=== PATIENT | female | born 1930 | race Caucasian/White ===

== ENCOUNTER 2016-10-24 12:57 | Inpatient (IN) | payer OTHER ==
[~2016-10-24] VITALS: Ht 162.6 cm; Wt 50.1 kg
--- NOTE | 2016-10-24 14:12 | DIAGNOSTIC IMAGING REPORT ---
PROCEDURE: XR CHEST 2 VIEW INDICATION: SHORTNESS OF BREATH, initial encounter TECHNIQUE: PA and lateral view. COMPARISON: None. FINDINGS: Small retrocardiac infiltrate. Cardiovascular structures are normal. Bony thorax is unremarkable. IMPRESSION: 1. Small retrocardiac infiltrate
--- NOTE | 2016-10-24 16:14 | ED ORDER SUMMARY ---
..... Patient: JUAN DANIEL ULLOA OrderSheet [facility] VisitID: [id number] [place] [address] 86y, F Registration Date/Time: 10/24/2016 ORDER SHEET Weight: 48.9 kg (estimated) Allergies: No Known Drug Allergy GENERAL ORDERS: Chest 2V Urgent (13:41 10/24/2016 DDean R.N. per protocol) (Ack 13:47 LMuller) (14:08 DDean R.N.) - (vital signs?) (13:49 10/24/2016 Maninder ESPARZA) (13:58 LMuller) CBC w Diff Urgent (14:26 10/24/2016 Maninder ESPARZA) (Ack 14:28 LMuller) (15:01 DDean R.N.) CMP Urgent (14:26 10/24/2016 Maninder ESPARZA) (Ack 14:28 LMuller) (15:01 DDean R.N.) UA-Culture if indicated Urgent (14:26 10/24/2016 Maninder ESPARZA) (Ack 14:28 LMuller) (Cancelled: Unable to [id number] DDean R.N.) BNP Urgent (14:26 10/24/2016 Maninder ESPARZA) (Ack 14:28 LMuller) (15:01 DDean R.N.) EKG - ER Stat (14:27 10/24/2016 Maninder ESPARZA) (Ack 14:28 LMuller) (15:40 DDean R.N.) Lactate, Serum Urgent (14:27 10/24/2016 Maninder ESPARZA) (Ack 14:28 LMuller) (15:40 DDean R.N.) PCT (Procalcitonin) Urgent (14:27 10/24/2016 Maninder ESPARZA) (Ack 14:28 LMuller) (15:01 DDean R.N.) Blood Culture (No) (N/A) Urgent (14:31 10/24/2016 Maninder ESPARZA) (Ack 14:34 LMuller) (15:40 DDean R.N.) Rapid Influenza Screen (Nasal Pharyngeal) (swab) Urgent (14:31 10/24/2016 Maninder ESPARZA) (Ack 14:34 LMuller) (15:49 DDean R.N.) MEDICATION ORDERS: Albuterol Neb Tx 5 mg (HHN) (14:29 10/24/2016 Maninder ESPARZA) (14:45 JZiglar) - (TAMIFLU 75 MG) (17:05 10/24/2016 Maninder ESPARZA) (17:26 DDean R.N.) IV FLUIDS: IV Saline Lock (14:26 10/24/2016 Maninder ESPARZA) (Ack 14:27 DDean R.N.) (15:02 DDean R.N.) Ceftriaxone IV 2 gm/50mL (NOW) (16:29 10/24/2016 Maninder ESPARZA) (Ack 16:34 SSanderson R.N.) (16:39 SSanderson R.N.) ORDER SHEET NOTES: [Electronically signed by Deb Bustillo R.N. (18:58 10/24/2016)] [Electronically signed by Kris Grady MD (22:54 10/24/2016)] [Electronically locked/signed by Deb Bustillo R.N. (18:58 10/24/2016)]
--- NOTE | 2016-10-24 16:14 | ED ORDER SUMMARY ---
..... Patient: JUAN DANIEL ULLOA OrderSheet [facility] VisitID: [id number] [place] [address] 86y, F Registration Date/Time: 10/24/2016 ORDER SHEET Weight: 48.9 kg (estimated) Allergies: No Known Drug Allergy GENERAL ORDERS: Chest 2V Urgent (13:41 10/24/2016 DDean R.N. per protocol) (Ack 13:47 LMuller) (14:08 DDean R.N.) - (vital signs?) (13:49 10/24/2016 Maninder ESPARZA) (13:58 LMuller) CBC w Diff Urgent (14:26 10/24/2016 Maninder ESPARZA) (Ack 14:28 LMuller) (15:01 DDean R.N.) CMP Urgent (14:26 10/24/2016 Maninder ESPARZA) (Ack 14:28 LMuller) (15:01 DDean R.N.) UA-Culture if indicated Urgent (14:26 10/24/2016 Maninder ESPARZA) (Ack 14:28 LMuller) (Cancelled: Unable to [id number] DDean R.N.) BNP Urgent (14:26 10/24/2016 Maninder ESPARZA) (Ack 14:28 LMuller) (15:01 DDean R.N.) EKG - ER Stat (14:27 10/24/2016 Maninder ESPARZA) (Ack 14:28 LMuller) (15:40 DDean R.N.) Lactate, Serum Urgent (14:27 10/24/2016 Maninder ESPARZA) (Ack 14:28 LMuller) (15:40 DDean R.N.) PCT (Procalcitonin) Urgent (14:27 10/24/2016 Maninder ESPARZA) (Ack 14:28 LMuller) (15:01 DDean R.N.) Blood Culture (No) (N/A) Urgent (14:31 10/24/2016 Maninder ESPARZA) (Ack 14:34 LMuller) (15:40 DDean R.N.) Rapid Influenza Screen (Nasal Pharyngeal) (swab) Urgent (14:31 10/24/2016 Maninder ESPARZA) (Ack 14:34 LMuller) (15:49 DDean R.N.) MEDICATION ORDERS: Albuterol Neb Tx 5 mg (HHN) (14:29 10/24/2016 Maninder ESPARZA) (14:45 JZiglar) - (TAMIFLU 75 MG) (17:05 10/24/2016 Maninder ESPARZA) (17:26 DDean R.N.) IV FLUIDS: IV Saline Lock (14:26 10/24/2016 Maninder ESPARZA) (Ack 14:27 DDean R.N.) (15:02 DDean R.N.) Ceftriaxone IV 2 gm/50mL (NOW) (16:29 10/24/2016 Maninder ESPARZA) (Ack 16:34 SSanderson R.N.) (16:39 SSanderson R.N.) ORDER SHEET NOTES: [Electronically signed by Deb Bustillo R.N. (18:58 10/24/2016)] [Electronically signed by Kris Grady MD (22:54 10/24/2016)] [Electronically locked/signed by Deb Bustillo R.N. (18:58 10/24/2016)]
--- NOTE | 2016-10-24 16:14 | ED CLINICAL REPORT ---
Clinical Report - Physicians/Mid Levels [facility] [address] [place] [address] 10/24/2016 13:05 Patient: JUAN DANIEL ULLOA Time Seen: 13:49. Arrived- By private vehicle. Historian- patient. HISTORY OF PRESENT ILLNESS Chief Complaint: COUGH AND FEVER. This started several days ago; Pt had initial cough which has now worsened and is associated with fever. and is still present and worsening. It was gradual in onset. The dyspnea is described as moderate and is worsened by walking. The patient has had sputum production, a cough, fever, wheezing and chills. She has had dyspnea on exertion. No chest pain or discomfort or calf pain. Similar symptoms previously: None. Recent medical care: The patient was seen recently in the office. REVIEW OF SYSTEMS The patient has had fever, fatigue, a cough and difficulty breathing. No photophobia, ear pain, sore throat, chest pain or pedal edema. No abdominal pain, diarrhea, nausea, vomiting or back pain. No joint pain, skin rash or difficulty with urination. PAST HISTORY Dr Galarza. Ops: Sha, Jerry Hosp: Above Illness: Dementia. SOCIAL HISTORY Never smoker. ADDITIONAL NOTES The nursing notes have been reviewed. PHYSICAL EXAM Vital Signs: 10/24/2016 17:33 BP: 120/52. HR: 84. RR: 20. O2 saturation: 96%. Pain level now: 0. 10/24/2016 17:15 BP: 122/46. HR: 86. RR: 20. O2 saturation: 95%. Pain level now: 0. 10/24/2016 16:39 BP: 104/51. HR: 79. RR: 20. O2 saturation: 94%. 10/24/2016 15:48 BP: 108/43. HR: 73. RR: 18. O2 saturation: 95%. Pain level now: 0. 10/24/2016 13:25 BP: 115/58. HR: 74. RR: 20. O2 saturation: 91%. Temp: 99.9 F. Pain level now: 0. Appearance: Alert. Patient in mild distress. Eyes: Eyes normal inspection. ENT: Pharynx normal. Neck: No jugular venous distention. CVS: Heart sounds normal. Respiratory: Wheezing present. Rhonchi present. Rales present. Abdomen: Soft and nontender. Skin: Skin warm. Normal skin color. No rash. Extremities: Extremities exhibit normal ROM. No lower extremity edema. Neuro: No alteration in mental status. No motor deficit. LABS, X-RAYS, AND EKG Chest X-ray: (PROCEDURE: XR CHEST 2 VIEW INDICATION: SHORTNESS OF BREATH, initial encounter TECHNIQUE: PA and lateral view. COMPARISON: None. FINDINGS: Small retrocardiac infiltrate. Cardiovascular structures are normal. Bony thorax is unremarkable. IMPRESSION: 1. Small retrocardiac infiltrate Electronically Final signed by:Damien Ramirez MD 10/24/2016 2:12:13 PM). Laboratory Tests: CBC w Diff: (NATALIE: 10/24/2016 14:35) ( [facility] 10/24/2016 15:10) Final results Test Result Flag Units (Reference) WHITE BLOOD COUNT 14.1 H K/uL (4.5-11.5) RED BLOOD COUNT 4.61 M/uL (4.00-5.20) HEMOGLOBIN 12.8 gm/dL (12.0-16.0) HEMATOCRIT 40.4 % (36.0-46.0) MEAN CELL VOLUME 88 fL (80-100) MEAN CORPUSCULAR HGB 28 pg (26-34) MEAN CORPUSCULAR HGB CONC 32 g/dL (31-37) RED CELL DISTRIBUTION WIDTH 14.0 % (11.6-14.8) PLATELET COUNT 205 K/uL (150-400) NEUTROPHIL % 86.0 H % (50-75) LYMPH % 5.5 L % (25-40) MONO % 8.4 % (3-14) EOSINOPHIL % 0 % (0-4) BASOPHIL % 0.1 % (0-2) Lactate, Serum: (NATALIE: 10/24/2016 15:10) ( [facility] 10/24/2016 16:25) Final results Test Result Flag Units (Reference) LACTIC ACID 1.7 mmol/L (0.4-2.0) [id number]: (NATALIE: 10/24/2016 14:35) ( MsgRcvd 10/24/2016 15:35) Final results Test Result Flag Units (Reference) PROCALCITONIN <0.5 ng/mL (0-0.5) PCT Concentration: Interpretation : Risk/option for action PCT <=0.5 ng/mL : Systemic : Low risk forinfection(sepsis): progression to severeis not likely. : systemic infection.Local bacterial : CAUTION-PCT levelsinfection is : below 0.5 ng/mL do notpossible. : exclude an infection,because localizedinfections (withoutsystemic signs) may beassociated with suchlow levels. If PCT ismeasured very earlyafter a bacterialchallenge (usually <6hours), these valuesmay still be low. Inthis case PCT shouldbe re-assessed 6-24hours later. PCT >0.5 and : Systemic infection: Moderate risk for<= 2 ng/mL : (sepsis) is : progression to severepossible, but : systemic infection.other conditions : The patient should beare known to : closely monitoredelevate PCT. : both clinically andby re-assessing PCTwithin 6-24 hours. PCT > 2 ng/mL : Systemic infection: High risk for(sepsis) is likely: progression to severeunless other : systemic infection.causes are known. : PCT >= 10 ng/mL : Important systemic: High likelihood ofinflammatory : severe sepsis orresponse, almost : septic shock.exclusively due to:severe bacterial :sepsis or septic :shock. : BNP: (NATALIE: 10/24/2016 14:35) ( [facility] 10/24/2016 15:34) Final results Test Result Flag Units (Reference) B-TYPE NATRIURETIC PEPTIDE 706 H pg/ml (5-100) CMP: (NATALIE: 10/24/2016 14:35) ( [facility] 10/24/2016 15:16) Final results Test Result Flag Units (Reference) GLUCOSE 119 H mg/dL (70-110) BUN 20 H mg/dL (7-18) CREATININE 0.9 mg/dL (0.6-1.3) Estimated GFR >60 mL/min Estimated GFR- >60 mL/min Note: Persistent reduction over 3 months in eGFR<60 mL/min/1.73 m2 defines CKD. Patients with eGFR values>=60 mL/min/1.73 m2 may also have CKD if evidence ofpersistent proteinuria. Additional information may be foundat www.kidney.org. SODIUM 141 mmol/L (136-145) POTASSIUM 4.3 mmol/L (3.5-5.1) CHLORIDE 104 mmol/L (98-107) CARBON DIOXIDE 29 mmol/L (21-32) CALCIUM 8.6 mg/dL (8.5-10.1) TOTAL PROTEIN 6.9 g/dL (6.4-8.2) ALBUMIN 3.0 L g/dL (3.3-5.0) BILIRUBIN, TOTAL 0.4 mg/dL (0.0-1.0) ALKALINE PHOSPHATASE 58 U/L (46-116) AST (SGOT) 35 U/L (15-37) ALT (SGPT) 28 U/L (12-78) Rapid Influenza Screen: (NATALIE: 10/24/2016 15:40) ( MsgRcvd 10/24/2016 16:19) Final results SPECIMEN DESCRIPTION: SWAB Test Result Flag Units (Reference) RAPID INFLUENZA SCREEN CALLED TO: Ellyn GUTIERREZ -- DATE: 10/24/16 INFLUENZA A: POSITIVE SCREEN FOR INFLUENZA A INFLUENZA B: NEGATIVE SCREEN FOR INFLUENZA B RAPID INFLUENZA "A" POSITIVE. . PROGRESS AND PROCEDURES Course of Care: Discussed with Dr Hdez who agrees to admit the patient to the ACU Pt treated with albuterol solumedrol ceftriaxone Added Tamiflu when influenza test is positive. Pt is recommended for admit for fever, bronchospasm, pneumonia on CXR. Additionally pt has some element of CHF and has influenza. Disposition orders written. CLINICAL IMPRESSION PNEUMONIA CHF BRONCHOSPASM INFLUENZA. (Electronically signed by Kris Grady MD 10/24/2016 22:54)
--- NOTE | 2016-10-24 16:14 | ED NURSING NOTES ---
Clinical Report - Nurses [facility] [address] [place] [address] 10/24/2016 13:05 Patient: JUAN DANIEL ULLOA TRIAGE Triage time 13:25. --13:29 Marvin Mandel R.N. Triage time 13:25. Acuity: LEVEL 3. Chief Complaint: SHORTNESS OF BREATH, DIFFICULTY BREATHING and WHEEZING. --13:49 Deb Bustillo R.N. 13:25 10/24/16. BP: 115/58. HR: 74. RR: 20. O2 saturation: 91% on room air. Temp: 99.9 F. Pain level now: 0/10. Additional comments: 93 ON 2 l nc . --13:49 Deb Bustillo R.N. Weight: 48.9 kg estimated. Height/Length: 63 inches Estimated. BMI: 19.1. --13:47 Deb Bustillo R.N. Medications Amenda 1 tab BID . --13:46 Deb Bustillo R.N. Aricept Oral, at bedtime. Centrum Silver Ultra Womens Oral, daily. --13:46 Deb Bustillo R.N. Claritin Oral 10 mg, PRN, last dose last night . --13:47 Deb Bustillo R.N. Allergies No Known Drug Allergy. --13:47 Deb Bustillo R.N. History Historian: spouse and patient. Primary physician (geovanni). ( c/o shortness of breath starting wednesday). --13:29 Marvin Mandel R.N. Arrived by private vehicle. Historian: patient. Accompanied by spouse. Primary physician (geovanni). Onset. ( night/ am--getting progressively worse, has appt on with Geovanni, but didn't want to wait til then). She has had fever, a cough and wheezing. SOCIAL HX: Never smoker. Alcohol use; consumes one glass of wine weekly. No drug use. --13:49 Deb Bustillo R.N. PROBLEMS: Senile dementia. --13:44 Deb Bustillo R.N. ADDITIONAL SURGERIES: Appendectomy. Hysterectomy. --13:44 Deb Bustillo R.N. Interventions ID band on patient. To treatment room. --13:49 Deb Bustillo R.N. PHYSICAL ASSESSMENT 13:25. Ambulatory to room. Patient gowned. GENERAL / NEURO / PSYCH: Alert. Appears in no acute distress. The patient is disoriented to time. RESPIRATORY: Mild respiratory distress. The patient can speak in full sentences. Cough. Wheezing present. CVS: Capillary refill less than 2 seconds. GI / : Abdomen soft. SKIN: Skin is warm and dry. --13:50 Deb Bustillo R.N. NURSING PROGRESS NOTES 13:25. Oxygen administered by nasal cannula at 2 liters. Patient gowned. Head of bed elevated. Reassurance given. Patient identifiers checked. Call light placed in reach. Side rails up. Bed placed in lowest position. Patient ready for evaluation- chart flagged. ( assisted pt in getting undressed and into gown). --13:51 Deb Bustillo R.N. 13:48. Patient transported to radiology by stretcher with tech. --13:52 Deb Bustillo R.N. 13:58. Patient returned from radiology by stretcher with tech. --14:07 Deb Bustillo R.N. 14:25 10/24/2016 Site #1 started via IV in the right forearm with an 20g angiocath, with aseptic technique and good blood return; one attempt. Blood drawn: rainbow set and cultures x1. Labeled in the presence of the patient and sent to the lab. Saline lock flushed with 10 mL saline. --15:02 Deb Bustillo R.N. 14:40 10/24/2016 Albuterol Neb TX Nebulizer 2 unit dose given. Given by the respiratory therapist. Allergies verified and confirmed 5 rights. Ap Panda --14:45 Ap Panda 15:00. Patient ID band checked for patient name and birthdate: patient confirmed. Flu swab obtained by RN via nasal pharyngeal swab. Labeled in the presence of the patient and sent to lab. --15:49 Deb Bustillo R.N. 15:48 10/24/16. BP: 108/43. HR: 73. RR: 18. O2 saturation: 95% on nasal cannula at 2 liters/minute. Temp: deferred. Pain level now: 0/10. --15:49 Deb Bustillo R.N. late entry -14:25 RT in CCU, EDRN started Albuterol tx for pt. --15:50 Deb Bustillo R.N. 16:39 10/24/2016 Started 2 gm of Ceftriaxone IVPB in bag #1 50 mL; at 150 mL/hr over 20 minute(s) via site #1; Allergies verified and confirmed 5 rights. IV patency established. IV site checked: no pain, redness, or swelling. IV flushed thoroughly pre- and post-medication administration. --16:39 Christine Cantu R.N. 16:39 10/24/16. BP: 104/51. HR: 79. RR: 20. O2 saturation: 94% on nasal cannula at 3 liters/minute. --16:40 Christine Cantu R.N. 17:05 10/24/2016 Ceftriaxone IVPB Discontinued: bag #1 infused upon discharge. Total amount infused: 50 mL. IV patency established. IV site checked: no pain, redness, or swelling. IV flushed thoroughly. --17:19 Deb Bustillo R.N. 17:20 10/24/2016 Tamiflu * PO 75mg --17:26 Deb Bustillo R.N. 17:15 10/24/16. BP: 122/46. HR: 86. RR: 20. O2 saturation: 95%. Temp: deferred. Pain level now: 0/10. Additional comments: pt does c/o sore throat, given po meds and juice. jc well . --17:27 Deb Bustillo R.N. 17:28 10/24/2016 Site #[address] upon admission; patent. Good blood return present. Flushed with 10 mL saline. --17:28 Deb Bustillo R.N. 17:28 10/24/2016 IV Saline Lock Drip IV Continued: upon admission at the rate of 0 mL/hr. 0 mL remaining bag #1. IV patency established. IV site checked: no pain, redness, or swelling. IV flushed thoroughly. --17:28 Deb Bustillo R.N. DISPOSITION / DISCHARGE Condition at departure: improved and stable. Admitted to Acute Care. Transported via stretcher by tech with IV and O2. Report was given. (RUFINA Camacho AC staff nurse). WES COMA SCORE: Wes Coma Scale: 14- eyes open spontaneously (4); best verbal response- disoriented (4); best motor response- obeys commands (6). --17:34 Deb Bustillo R.N. 17:33 10/24/16. BP: 120/52. HR: 84. RR: 20. O2 saturation: 96% on nasal cannula at 2 liters/minute. Temp: deferred. Pain level now: 0/10. --17:34 Deb Bustillo R.N. Departure time: 1750. --18:56 Deb Bustillo R.N. Locked/Released at 10/24/2016 18:58 by Deb Bustillo R.N.
[2016-10-24 18:37] VITALS: BP 137/63
[2016-10-24] MEDS ORDERED: NAMENDA10 MG PO (18:52)
[2016-10-24] MEDS ORDERED: ARICEPT10 MG PO (18:53)
--- NOTE | 2016-10-24 22:38 | HISTORY AND PHYSICAL ---
ADMITTED: 10/24/2016 CHIEF COMPLAINT: 1. Cough and shortness of breath HISTORY OF PRESENT ILLNESS: An 86-year-old female with history of dementia/ memory loss presents with increasing illness for several days, approximately 5 days' history was given in from the patient's spouse of cough and wheezing. The spouse is not present at the time of my interview and the patient denies all symptoms; however, she coughs during the history while denying cough. MEDICAL/SURGICAL HISTORY: Past medical history remarkable for memory loss, verruca vulgaris, cataracts. Surgeries: Appendectomy and hysterectomy. MEDICATIONS: 1. Ipratropium 2 sprays per nostril 3 times a day. 2. Calcium carbonate 1 tablet daily. 3. Multivitamin once daily. 4. Aricept 10 mg 2 p.o. daily. 5. Namenda 10 mg 1 p.o. b.i.d. ALLERGIES: 1. NONE KNOWN. SOCIAL HISTORY: female with 2 children, Muslim, retired. She has enjoyed reading in the past. Smoking: None. Alcohol use: 1 glass per week. Drug use: None. FAMILY HISTORY: No medical problems, known in her parents, who between 80 and 90 years of age. REVIEW OF SYSTEMS: Entirely negative, as the patient denies all symptomatology. She denies headache, seizures, dizziness, vision problems, hearing problems, sore throat, runny nose, ear pain, cough, shortness of breath, wheezing, chest pain, palpitations, nausea, vomiting, diarrhea, constipation, melena, bright red blood per rectum, dysuria, hematuria, frequency of urination, joint pain, rashes or skin lesions. PHYSICAL EXAMINATION: VITAL SIGNS: Blood pressure 115/58, heart rate 74, respirations 20, SaO2 91% on room air. HEENT: Clear. NECK: Supple without adenopathy or thyromegaly. CHEST: Positive rhonchi and mild wheezing bilaterally. HEART: Regular rate and rhythm without murmur. ABDOMEN: Positive bowel sounds. Soft, nontender, without hepatosplenomegaly or masses. Abdomen is scaphoid. BACK: Straight without CVA tenderness. EXTREMITIES: Without cyanosis, clubbing, or edema. SKIN: Reveals no rash. GENITAL/RECTAL/BREASTS: Deferred. NEUROLOGIC: Intact and symmetric. Shows poor memory. Exam is nonfocal. The patient moves all extremities equally. Cranial nerves II-XII are grossly intact and symmetric. LAB/IMAGING: WBC 14.1, hemoglobin 12.8, hematocrit 40.4, platelets 205, neutrophils 86%, lymphocytes 5.5%, monocytes 8.4%. Lactic acid 1.7. Sodium 141, potassium 4.3, chloride 104, CO2 29, BUN 20, creatinine 0.9, glucose 119, plasma calcium 8.6. Total bilirubin 0.4, AST 35, ALT 28, albumin 3.0. Additional lab result: Influenza screen is positive for influenza type A. Chest x-ray is obtained and reveals small retrocardiac infiltrate. IMPRESSION: 1. Influenza type A. 2. Pneumonia with retrocardiac infiltrate. 3. Memory loss. PLAN: Admit to [facility] for intravenous hydration, antiviral medication for flu, intravenous antibiotics for pneumonia, and monitoring. The patient also had an elevated BNP found in the emergency department. She has not had the prior history of congestive heart failure. She, therefore, has new-onset congestive heart failure. Echocardiogram will be obtained. The patient will be monitored. confirmed NO CODE STATUS. Therefore, aggressive intervention will not be undertaken, but presence of congestive heart failure clearly shows increased acuity of illness and complication of pneumonia as well as influenza.
--- NOTE | 2016-10-24 22:54 | ED MED RECONCILIATION SUMMARY ---
Patient: JUAN DANIEL ULLOA Medication Reconciliation Report [facility] VisitID: [id number] [address] [place] [address] 86y, F Registration Date/Time: 10/24/2016 Weight: 48.9 kg Height/Length: 63 in. BMI: 19.1 ALLERGIES: No Known Drug Allergy The patient's Home Medications are listed below: THE FOLLOWING MEDICATIONS NEED TO BE RECONCILED: Amenda 1 tab BID Aricept Oral, at bedtime Centrum Silver Ultra Womens Oral, daily Claritin Oral 10 mg, PRN, last dose: last night The source(s) of the original Home Medication information: Not obtained. The following Medications were given to the patient in the Emergency Department: Albuterol [Neb Tx] Neb TX 2 unit dose, administered: 10/24/2016 2:40:00 PM Ceftriaxone [IVPB] IVPB bolus 0, then 2 gm 150 mL/hr, administered: 10/24/2016 4:39:00 PM Tamiflu PO 75mg, administered: 10/24/2016 5:20:00 PM The following Medications were prescribed to the patient: None.
--- NOTE | 2016-10-24 22:54 | ED MAR SUMMARY ---
..... Medication Administration Record [facility] [address] [place] [address] Patient: JUAN DANIEL ULLOA Visit ID: [id number] 86y, F Weight: 48.9 kg Height/Length: 63 in BMI: 19.1 ALLERGIES: No Known Drug Allergy Given 14:40 10/24/2016 Ap Panda, Medication Administered: ALBUTEROL [NEB TX], Dose: 2 unit dose Nebulizer Neb TX. Medication Ordered: Albuterol Neb Tx 5 mg (N). Start 16:39 10/24/2016 Christine Cantu R.N., Stop 17:05 10/24/2016 Deb Bustillo R.N. Medication Administered: CEFTRIAXONE [IVPB], Dose: 2 gm IVPB over 20 minute(s), Rate: 150 mL/hr, Dispensed: 50 mL bag, Site: #1 right forearm. Medication Ordered: Ceftriaxone IV 2 gm/50mL (NOW). Given 17:20 10/24/2016 Deb Bustillo RDonell. Medication Administered: Tamiflu *, Dose: 75mg * PO. Medication Ordered: - (TAMIFLU 75 MG).
--- NOTE | 2016-10-24 22:54 | ED DISCHARGE INSTRUCTIONS ---
Patient: JUAN DANIEL ULLOA General Instructions [facility] VisitID: [id number] [address] [place] [address] 86y, F Registration Date/Time: 10/24/2016 PNEUMONIA CHF BRONCHOSPASM INFLUENZA. (Electronically signed by Kris Grady MD 10/24/2016 22:54)
--- NOTE | 2016-10-24 22:54 | ED MED RECONCILIATION SUMMARY ---
Patient: JUAN DANIEL ULLOA Medication Reconciliation Report [facility] VisitID: [id number] [address] [place] [address] 86y, F Registration Date/Time: 10/24/2016 Weight: 48.9 kg Height/Length: 63 in. BMI: 19.1 ALLERGIES: No Known Drug Allergy The patient's Home Medications are listed below: THE FOLLOWING MEDICATIONS NEED TO BE RECONCILED: Amenda 1 tab BID Aricept Oral, at bedtime Centrum Silver Ultra Womens Oral, daily Claritin Oral 10 mg, PRN, last dose: last night The source(s) of the original Home Medication information: Not obtained. The following Medications were given to the patient in the Emergency Department: Albuterol [Neb Tx] Neb TX 2 unit dose, administered: 10/24/2016 2:40:00 PM Ceftriaxone [IVPB] IVPB bolus 0, then 2 gm 150 mL/hr, administered: 10/24/2016 4:39:00 PM Tamiflu PO 75mg, administered: 10/24/2016 5:20:00 PM The following Medications were prescribed to the patient: None.
--- NOTE | 2016-10-24 22:54 | ED DISCHARGE INSTRUCTIONS ---
Patient: JUAN DANIEL ULLOA General Instructions [facility] VisitID: [id number] [address] [place] [address] 86y, F Registration Date/Time: 10/24/2016 PNEUMONIA CHF BRONCHOSPASM INFLUENZA. (Electronically signed by Kirs Grady MD 10/24/2016 22:54)
--- NOTE | 2016-10-24 22:54 | ED MAR SUMMARY ---
..... Medication Administration Record [facility] [address] [place] [address] Patient: JUAN DANIEL ULLOA Visit ID: [id number] 86y, F Weight: 48.9 kg Height/Length: 63 in BMI: 19.1 ALLERGIES: No Known Drug Allergy Given 14:40 10/24/2016 Ap Panda, Medication Administered: ALBUTEROL [NEB TX], Dose: 2 unit dose Nebulizer Neb TX. Medication Ordered: Albuterol Neb Tx 5 mg (N). Start 16:39 10/24/2016 Christine Cantu R.N., Stop 17:05 10/24/2016 Deb Bustillo R.N. Medication Administered: CEFTRIAXONE [IVPB], Dose: 2 gm IVPB over 20 minute(s), Rate: 150 mL/hr, Dispensed: 50 mL bag, Site: #1 right forearm. Medication Ordered: Ceftriaxone IV 2 gm/50mL (NOW). Given 17:20 10/24/2016 Deb Bustillo RDonell. Medication Administered: Tamiflu *, Dose: 75mg * PO. Medication Ordered: - (TAMIFLU 75 MG).
[2016-10-25] VITALS (8 sets, daily range): BP systolic 114–147; BP diastolic 56–80
--- NOTE | 2016-10-25 20:18 | Progress Note ---
Subjective General An 86-year-old female with history of dementia/memory loss presents with increasing illness for several days, approximately 5 days' history was given in from the patient's spouse of cough and wheezing. Pt also found to have elevated BNP on admit c/w CHF, new onset. Echo pending. Now reports slight improvement. Still; coughing lots and feels very weak. No edema. Physical Exam Vital Signs / I&Os Vital Signs Date Time Temp Pulse Resp B/P Pulse O2 O2 Flow FiO2 Ox Delivery Rate 10/25 1930 3.0 10/25 1806 98.4 110 16 147/64 90 Nasal 3.0 Cannula 10/25 1749 98.2 88 16 119/80 98 Nasal 3.0 Cannula 10/25 1530 3.0 10/25 1438 99.5 62 16 124/58 90 Nasal 3.0 Cannula 10/25 1106 3.0 10/25 1001 98.8 68 16 114/57 94 Nasal 3.0 Cannula 10/25 0945 4.0 10/25 0616 99.5 62 18 125/56 90 Nasal 3.0 Cannula 10/25 0419 3.0 10/25 0413 99.4 66 18 118/59 90 Nasal 3.0 Cannula 10/25 0052 4.0 10/25 0044 99.9 66 18 121/64 92 Nasal 3.0 Cannula 10/24 2145 3.0 I&O 10/24 0800 10/24 1600 10/25 0000 Intake Total Output Total 400 Balance -400 General Appearance Alert, Cooperative, No acute distress Lungs Bilateral rhonchi. Cardiovascular Regular rate and rhythm Abdomen Normal bowel sounds, Soft, No tenderness Extremities No edema Skin No Rashes LAB Results Laboratory Tests 10/25 10/25 0515 0515 Chemistry Plasma Sodium (136 - 145 mmol/L) 140 Plasma Potassium (3.5 - 5.1 mmol/L) 4.0 Plasma Chloride (98 - 107 mmol/L) 105 CO2 (Enzymatic) (21 - 32 mmol/L) 30 BUN (7 - 18 mg/dL) 20 Creatinine (0.6 - 1.3 mg/dL) 0.8 Est GFR ( Amer) (mL/min) >60 Est GFR (Non-Af Amer) (mL/min) >60 Glucose (70 - 110 mg/dL) 106 Plasma Calcium (8.5 - 10.1 mg/dL) 8.3 Plasma Magnesium (1.8 - 2.4 mg/dL) 2.2 Total Bilirubin (0.0 - 1.0 mg/dL) 0.3 AST (15 - 37 U/L) 31 ALT (12 - 78 U/L) 22 Alkaline Phosphatase (46 - 116 U/L) 51 B-Natriuretic Peptide (5 - 100 pg/ml) 212 Total Protein (6.4 - 8.2 g/dL) 6.2 Albumin (3.3 - 5.0 g/dL) 2.4 Hematology WBC (4.5 - 11.5 K/uL) 11.0 RBC (4.00 - 5.20 M/uL) 4.27 Hgb (12.0 - 16.0 gm/dL) 11.9 Hct (36.0 - 46.0 %) 38.1 MCV (80 - 100 fL) 89 MCH (26 - 34 pg) 28 RDW (11.6 - 14.8 %) 14.6 Neut % (Auto) (50 - 75 %) 78.4 Lymph % (Auto) (25 - 40 %) 10.7 [place] % (Auto) (3 - 14 %) 10.8 Eos % (Auto) (0 - 4 %) 0 Baso % (Auto) (0 - 2 %) 0.1 Plt Count, EDTA (150 - 400 K/uL) 191 PUBS MCHC (31 - 37 g/dL) 31 Assessment and Plan Problem List 1. CHF (congestive heart failure) Plan Continue to monitor. Echo pending. 2. Pneumonia Plan Continue current care. 3. Influenza A Plan Will start tamiflu.
[2016-10-26 03:16] VITALS: BP 140/65
[2016-10-26 06:49] VITALS: BP 117/60
[2016-10-26 11:06] VITALS: BP 127/74
[2016-10-26 13:59] VITALS: BP 142/69
--- NOTE | 2016-10-26 14:38 | Progress Note ---
Subjective General Patient feeling improved, but still on oxygen. cough improved. No nausea/ vomitting/diarrhea/constipation. No abdominal pain. Physical Exam Vital Signs / I&Os Vital Signs Date Time Temp Pulse Resp B/P Pulse O2 O2 Flow FiO2 Ox Delivery Rate 10/26 1413 3.0 10/26 1359 37.2 72 18 142/69 98 Room Air 2.0 10/26 1106 37.1 67 20 127/74 10/26 1028 2.0 10/26 0733 2.0 10/26 0649 37.1 65 16 117/60 90 Room Air 0.0 10/26 0328 36.8 10/26 0316 37.3 75 16 140/65 97 Nasal 3.0 Cannula 10/26 0108 3.0 10/25 2144 37.3 72 16 114/61 96 Nasal 3.0 Cannula 10/25 2130 3.0 10/25 1930 3.0 10/25 1806 36.9 110 16 147/64 90 Nasal 3.0 Cannula 10/25 1749 36.8 88 16 119/80 98 Nasal 3.0 Cannula 10/25 1530 3.0 10/25 1438 37.5 62 16 124/58 90 Nasal 3.0 Cannula I&O 10/26 0000 10/25 1600 10/25 0800 Intake Total 1339 480 729 Output Total 275 500 100 Balance 1064 -20 629 General Appearance Alert, Cooperative, No acute distress Lungs Crackles in LLL Cardiovascular Normal S1 and S2, 2/6 systolic murmur increased at base. Abdomen Normal bowel sounds, Soft, No tenderness Extremities No edema Assessment and Plan Problem List 1. Pneumonia Plan Improving on antibiotics. Will wean O2 and plan to discharge to home when off O2. 2. CHF (congestive heart failure) Plan Improved. will monitor.
[2016-10-26 18:35] VITALS: BP 139/63
[2016-10-26 23:20] VITALS: BP 160/75
[2016-10-27 02:24] VITALS: BP 158/72
[2016-10-27 06:24] VITALS: BP 169/73
--- NOTE | 2016-10-27 07:38 | Progress Note ---
Subjective General 86-year-old female with history of dementia/memory loss presents with increasing illness for several days, approximately 5 days' history was given in from the patient's spouse of cough and wheezing. Pt also found to have elevated BNP on admit c/w CHF, new onset. Echo showed small pericardial and pleural effusions with good ejection fraction. Feeling improved but still coughing some. Developed explosive watery diarrhea yesterday. Denies nausea, vomiting. Physical Exam Vital Signs / I&Os Vital Signs Date Time Temp Pulse Resp B/P Pulse O2 O2 Flow FiO2 Ox Delivery Rate 10/27 0624 98.6 80 18 169/73 95 Room Air 0.0 10/27 0224 98.8 80 18 158/72 93 Room Air 3.0 / 2320 98.4 66 18 160/75 96 Room Air 3.0 / 1835 98.8 78 18 139/63 91 Room Air 10/26 1413 3.0 10/26 1359 99.0 72 18 142/69 98 Room Air 2.0 10/26 1106 98.8 67 20 127/74 10/26 1028 2.0 I&O 10/26 0800 / 1600 10/27 0000 Intake Total 3243 485 4143 Output Total 171 270 6250 Balance 1117 280 365 General Appearance Alert, Oriented X3, Cooperative, No acute distress Lungs Clear to auscultation Cardiovascular Regular rate and rhythm Abdomen Normal bowel sounds, Soft, No tenderness Extremities No edema Skin No Rashes Assessment and Plan Problem List 1. Pneumonia Plan Improving with wean off O2. Will check CXR and reduce antibiotics. 2. CHF (congestive heart failure) Plan Improved BNP. 3. Influenza A Plan Clinically improved but with diarrhea 4. Diarrhea Plan Check c. diff and give lomotil.
--- NOTE | 2016-10-27 07:38 | Progress Note ---
Subjective General 86-year-old female with history of dementia/memory loss presents with increasing illness for several days, approximately 5 days' history was given in from the patient's spouse of cough and wheezing. Pt also found to have elevated BNP on admit c/w CHF, new onset. Echo showed small pericardial and pleural effusions with good ejection fraction. Feeling improved but still coughing some. Developed explosive watery diarrhea yesterday. Denies nausea, vomiting. Physical Exam Vital Signs / I&Os Vital Signs Date Time Temp Pulse Resp B/P Pulse O2 O2 Flow FiO2 Ox Delivery Rate 10/27 0624 98.6 80 18 169/73 95 Room Air 0.0 10/27 0224 98.8 80 18 158/72 93 Room Air 3.0 / 2320 98.4 66 18 160/75 96 Room Air 3.0 / 1835 98.8 78 18 139/63 91 Room Air 10/26 1413 3.0 10/26 1359 99.0 72 18 142/69 98 Room Air 2.0 10/26 1106 98.8 67 20 127/74 10/26 1028 2.0 I&O 10/26 0800 / 1600 10/27 0000 Intake Total 5611 112 0795 Output Total 358 766 3901 Balance 1117 280 365 General Appearance Alert, Oriented X3, Cooperative, No acute distress Lungs Clear to auscultation Cardiovascular Regular rate and rhythm Abdomen Normal bowel sounds, Soft, No tenderness Extremities No edema Skin No Rashes Assessment and Plan Problem List 1. Pneumonia Plan Improving with wean off O2. Will check CXR and reduce antibiotics. 2. CHF (congestive heart failure) Plan Improved BNP. 3. Influenza A Plan Clinically improved but with diarrhea 4. Diarrhea Plan Check c. diff and give lomotil.
[2016-10-27 10:27] VITALS: BP 144/76
[2016-10-27 13:49] VITALS: BP 151/77
--- NOTE | 2016-10-27 17:07 | DIAGNOSTIC IMAGING REPORT ---
REFERRING PHYSICIAN/PROVIDER: Dr. Hdez CONSULTING PUBLIC AFFAIRS SPECIALIST: Francie Jain MD PROCEDURE: Echocardiogram TECHNICAL QUALITY: Fair INDICATION: chf RHYTHM DURING PROCEDURE: NSR INTERPRETATIONS: LEFT VENTRICLE: Normal LV size, wall thickness, wall motion and left ventricular systolic function. Ejection fraction is 60 - 65%. Diastolic dysfunction evaluation is incomplete but is most consistent with stage I diastolic dysfunction. Specifically E/e' ratio is 9 and the E/A pattern is reversed. MITRAL VALVE: There is mild mitral annular calcification with trace associated MR AORTIC VALVE: Aortic sclerosis without stenosis. There is mild central aortic regurgitation. TRICUSPID VALVE: Leaflets are normal. There is trace tricuspid regurgitation. Estimated pulmonary artery systolic pressure is 50 mmHg assuming right atrial pressure of 15 mmHg. PULMONIC VALVE: Not visualized no CHAMBERS: Normal chamber sizes. Left atrial diameter is 2.9 cm in parasternal long axis view. GREAT VESSELS: Inferior vena cava is dilated and does not collapse more than 50%. Thus it is most consistent with right atrial pressure of 15 mmHg. OTHER: There is trace pericardial effusion without evidence of tamponade IMPRESSION: 1. Normal LV size, wall thickness, wall motion and LV systolic function. Stage I diastolic dysfunction. 2. No significant valvular abnormalities 3. There is elevated pulmonary artery systolic pressure estimated at 50 mmHg with normal RV size and function. Elevated pulmonary artery systolic pressure could be due to elevated LV filling pressure or due to intrinsic abnormalities in pulmonary vasculature. 4. Trace pericardial effusion
[2016-10-27 18:25] VITALS: BP 140/59
[2016-10-27 22:57] VITALS: BP 136/65
[2016-10-28 02:28] VITALS: BP 147/70
[2016-10-28 06:36] VITALS: BP 144/67
--- NOTE | 2016-10-28 06:37 | DIAGNOSTIC IMAGING REPORT ---
PROCEDURE: XR CHEST 1 VIEW INDICATION: pneumonia, follow-up TECHNIQUE: Portable AP view 06:20 a.m. COMPARISON: Chest x-ray 10/24/2016 FINDINGS: Hyperinflation. Progression of moderate retrocardiac and new small right basilar infiltrates with new small bilateral pleural effusions. Mild cardiomegaly with increased interstitial markings. Thorax is normal. IMPRESSION: 1. Progression of retrocardiac and new right basilar pneumonia 2. Mild cardiomegaly with mild CHF
[2016-10-28] MEDS ORDERED: TAMIFLU30 MG PO (07:29)
[2016-10-28] MEDS ORDERED: CEPHALEXIN500 MG PO (07:29)
--- NOTE | 2016-10-28 07:32 | Provider's Discharge Care Plan ---
Problem, Goal, Plan Problem List 1. Pneumonia Goals: Improve disease control Instructions: Take meds as directed 2. CHF (congestive heart failure) Goals: Improve disease control Instructions: Take meds as directed 3. Influenza A Goals: Improve disease control Instructions: Take meds as directed 4. Diarrhea Goals: Improved health/wellness Instructions: cONTINUE A HEALTHY DIET.
--- NOTE | 2016-10-28 08:11 | DISCHARGE SUMMARY ---
ADMIT DATE: 10/24/2016 DISCHARGE DATE: 10/28/2016 ADMITTING DIAGNOSES: 1. Influenza type A 2. Pneumonia 3. Memory loss 4. Congestive heart failure, acute onset, mild DISCHARGE DIAGNOSES: 1. Influenza type A 2. Pneumonia 3. Memory loss 4. Congestive heart failure, acute onset, mild BRIEF HISTORY: An 86-year-old female with history of dementia/memory loss, presented with increasing illness x5 days. Testing in the emergency department revealed infiltrate, retrocardiac and pneumonia and also mildly elevated BNP. HOSPITAL COURSE: The patient was admitted on antiviral medication as well as IV antibiotics, ceftriaxone, and azithromycin. She tolerated this management well. Chest x-ray showed small retrocardiac infiltrate which did not change during the hospital stay. Echocardiogram was obtained, which revealed small pleural effusions and a small pericardial effusion which on discussion with Cardiology was not felt to be clinically significant. The patient's BNP improved during the hospital stay and her symptomatology improved. On the day of discharge, she had only mild dry cough, was tolerating ambulation, oral intake and feeling well. Discharge examination was normal. DISPOSITION: Home. DISCHARGE INSTRUCTIONS/MEDICATIONS: Tamiflu 30 mg 1 p.o. b.i.d., cephalexin 500 mg p.o. b.i.d. x5 days, Namenda 10 mg p.o. b.i.d., donepezil 10 mg 2 p.o. at bedtime Special instructions: Light activity at home, normal diet. Follow up in my office in 2 weeks.
[2016-10-28 10:18] VITALS: BP 141/64
--- NOTE | 2016-10-28 13:26 | Progress Note ---
Subjective General C. diff positive but diarrhea stopped. Will treat with flagyl.
--- NOTE | 2016-10-28 13:26 | Progress Note ---
Subjective General C. diff positive but diarrhea stopped. Will treat with flagyl.
[2016-10-28] MEDS ORDERED: FLAGYL500 MG PO (13:27)
== END 2016-10-28 14:30 | disposition home or self-care (01) | DRG 194 ==
LOC: ED SRH 12:57 → TRANS SRH 16:23 → ACUTE2 SRH 17:54
PROVIDERS: ADMIT Emergency Medicine Emergency Medical Services
DX: J10.00 Influenza due to other identified influenza virus with unspecified type of pneumonia (principal); A04.7 Enterocolitis due to Clostridium difficile; I50.9 Heart failure, unspecified; F03.90 Unspecified dementia, unspecified severity, without behavioral disturbance, psychotic disturbance, mood disturbance, and anxiety; F06.8 Other specified mental disorders due to known physiological condition
CPT/HCPCS: 85241; 86045; 87115; 90065; 90074; 90100; 90112; 91320; 91400; 92031; 92720; 93004; 95059

== ENCOUNTER 2016-11-13 10:13 | Outpatient (CLI) | payer OTHER ==
[~2016-11-13 10:13] MED LIST: ARICEPT10 MG PO; CEPHALEXIN500 MG PO; FLAGYL500 MG PO; NAMENDA10 MG PO; TAMIFLU30 MG PO
--- NOTE | 2016-11-13 10:52 | DIAGNOSTIC IMAGING REPORT ---
PROCEDURE: XR CHEST 2 VIEW INDICATION: PNEUMONIA AND INFLUENZA DIASTOLIC HEART FAILURE TECHNIQUE: PA and lateral views. COMPARISON: Chests 10/28/2016 and 10/24/16 FINDINGS: There is a new patchy infiltrate in the lingula. This is visible on both the PA and lateral view. Right lung is clear. Heart and mediastinum are normal. Thorax is normal. IMPRESSION: 1. New lingular infiltrate.
== END 2016-11-13 23:00 ==
LOC: XR SRH 10:13
DX: J11.00 Influenza due to unidentified influenza virus with unspecified type of pneumonia (principal); I50.30 Unspecified diastolic (congestive) heart failure; R91.8 Other nonspecific abnormal finding of lung field

== ENCOUNTER 2016-12-09 11:29 | Outpatient (CLI) | payer OTHER ==
--- NOTE | 2016-12-09 12:06 | DIAGNOSTIC IMAGING REPORT ---
PROCEDURE: XR CHEST 2 VIEW INDICATION: PNEUMONIA AND INFLUENZA TECHNIQUE: PA and lateral views. COMPARISON: None. FINDINGS: No change in the lingular infiltrate. Heart and pulmonary vasculature remain normal. IMPRESSION: 1. Lingular infiltrate.
== END 2016-12-09 23:00 ==
LOC: XR SRH 11:29
DX: R91.8 Other nonspecific abnormal finding of lung field (principal)

== ENCOUNTER 2016-12-22 09:33 | Outpatient (CLI) | payer OTHER ==
--- NOTE | 2016-12-22 10:48 | DIAGNOSTIC IMAGING REPORT ---
PROCEDURE: XR CHEST 2 VIEW INDICATION: PNEUMONIA AND INFLUENZA TECHNIQUE: PA and lateral views. COMPARISON: None. FINDINGS: There has been a decrease in the lingular infiltrate. Heart and mediastinum are normal. Thorax is normal. IMPRESSION: 1. Decrease in lingular infiltrate.
== END 2016-12-22 23:00 ==
LOC: XR SRH 09:33
DX: J11.00 Influenza due to unidentified influenza virus with unspecified type of pneumonia (principal)

== ENCOUNTER 2017-01-05 09:54 | Outpatient (CLI) | payer OTHER ==
--- NOTE | 2017-01-05 11:07 | DIAGNOSTIC IMAGING REPORT ---
PROCEDURE: XR CHEST 2 VIEW INDICATION: PNEUMONIA AND INFLUENZA TECHNIQUE: PA and lateral views. COMPARISON: Chest 12/22 02:15 and 11/13/2016 FINDINGS: There has been resolution of the lingular infiltrate. Lungs are now clear. Heart and mediastinum are normal. Thorax is normal. IMPRESSION: 1. Resolution of lingular infiltrate. Lungs clear.
== END 2017-01-05 23:00 ==
LOC: XR SRH 09:54
DX: J11.00 Influenza due to unidentified influenza virus with unspecified type of pneumonia (principal)